=== PATIENT | male | born 1945 | race Caucasian/White ===

== ENCOUNTER 2019-12-01 05:07 | Observation (INO) ==
[2019-12-01] MEDS ORDERED: AMPICILLIN/SULBACTAM 3,000 MG in SODIUM CHLORIDE 0.9% 100 ML IV STA (06:22)
[2019-12-01] MEDS ORDERED: ONDANSETRON 4 MG/2 ML VIAL ONE ×2 (06:37→10:51)
[2019-12-01] MEDS ORDERED: HYDROmorphone 2 MG/1 ML VIAL ONE (06:37)
[2019-12-01 06:40] LABS: Basophils # 0.1 10*3/uL (0.0-0.2); Basophils % 0.4 % (0.0-0.8); Eosinophils # 0.3 10*3/uL (0.0-0.87); Eosinophils % 2.1 % (0.00-10.9); Hematocrit 47.1 VOL% (42.0-52.0); Immature Granulocytes % 0.7 %; Lymphocytes # 1.5 10*3/uL (1.4-4.0); Mean Corpuscular Volume 91.1 FL (87-102); Mean Platelet Volume 10.5 FL (9.6-12.0); Monocytes % 16.4 % (1.7-12.7); Neutrophils % 70.4 % (38.7-73.9); Platelet Count 173 T/CUMM (130-400); Red Blood Count 5.17 MC/CUMM (3.8-5.5); Red Cell Distribution Width 13.8 % (9.3-17.3); White Blood Count 14.9 T/CUMM (4-12)
[2019-12-01 06:49] LABS: INR 1.1; PT Patient Result 11.5 SECS (9.8-11.9); Partial Thromboplastin Time 29.6 SECS (23.9-33.8)
[2019-12-01 07:04] LABS: Albumin 3.1 G/DL (3.4-5.0); Bilirubin,Total 0.7 MG/DL (0.2-1.0); Calcium 8.6 MG/DL (8.5-10.1); Osmolality,Calculated 276.7 MOS/KG (273-304); Total Protein 6.9 G/DL (6.4-8.3)
[2019-12-01 07:11] LABS: Lymphocytes 6 % (20-55); Platelet Estimate Adequate; Segmented Neutrophils 82 % (50-85); Total Cells Counted 100
[2019-12-01] MEDS ORDERED: AMPICILLIN/SULBACTAM 3,000 MG VIAL ONE (07:29)
[2019-12-01] MEDS ORDERED: CLINDAMYCIN INJ 900 MG in PREMIX 1 EACH IV ONE (08:33)
[2019-12-01] MEDS ORDERED: DEXTROSE 50% 25 GM/50 ML VIAL IV PRN (08:55)
[2019-12-01] MEDS ORDERED: DOCUSATE SODIUM 100 MG CAPSULE PO PRN (08:55)
[2019-12-01] MEDS ORDERED: GLUCAGON 1 MG VIAL IM PRN (08:55)
[2019-12-01] MEDS ORDERED: ONDANSETRON 4 MG/2 ML VIAL IV PRN ×2 (08:55→10:54)
[2019-12-01] MEDS ORDERED: MORPHINE 4 MG/1 ML VIAL IV PRN (08:55)
[2019-12-01] MEDS ORDERED: LACTULOSE 20 GM/30 ML UDCUP PO PRN (08:55)
[2019-12-01] MEDS ORDERED: ALBUTEROL/IPRATROPIUM 3 ML NEB RESP TX SCH (09:00)
[2019-12-01] MEDS ORDERED: PIPERACILLIN/TAZOBACTAM 4.5 MG in SODIUM CHLORIDE 0.9% 100 ML IV SCH (09:00)
[2019-12-01] MEDS ORDERED: PIPERACILLIN/TAZOBACTAM 4,500 MG in SODIUM CHLORIDE 0.9% 100 ML IV SCH ×2 (09:02→09:30)
[2019-12-01] MEDS ORDERED: BUPIVACAINE 0.25% /EPI 10 ML VIAL ONE (09:02)
[2019-12-01] MEDS ORDERED: LIDOCAINE 1%/EPI INJ 20 ML VIAL ONE (09:02)
[2019-12-01] MEDS ORDERED: CLINDAMYCIN INJ 50 ML IV ONE (10:12)
[2019-12-01] MEDS ORDERED: MEPERIDINE 25 MG/1 ML VIAL ONE (10:51)
[2019-12-01] MEDS ORDERED: MEPERIDINE 25 MG/1 ML VIAL IV PRN (10:54)
[2019-12-01] MEDS ORDERED: SEVOFLURANE 1 UNIT/15 MINUTE INH ONE (11:17)
[2019-12-01] MEDS ORDERED: LIDOCAINE 2% 5 ML VIAL ONE (11:17)
[2019-12-01] MEDS ORDERED: fentaNYL 100 MCG/2 ML VIAL ONE (11:17)
[2019-12-01] MEDS ORDERED: propofoL 200 MG/20 ML VIAL IV ONE (11:17)
[2019-12-01] MEDS ORDERED: SUCCINYLCHOLINE 200 MG/10 ML VIAL ONE (11:17)
[2019-12-01] MEDS ORDERED: ALBUTEROL 2.5 MG/3 ML NEB RESP TX PRN (13:39)
[2019-12-01] MEDS: ALBUTEROL/IPRATROPIUM 3 ML NEB RESP TX SCH ×2 (13:50→19:17)
[2019-12-01] MEDS ORDERED: VANCOMYCIN INJ 1,750 MG in SODIUM CHLORIDE 0.9% 500 ML IV SCH (14:00)
[2019-12-01] MEDS ORDERED: hydrALAZINE 20 MG/1 ML VIAL IV PRN (14:08)
[2019-12-01] MEDS: LACTOBACILLUS RHAMNOSUS GG CAPSULE PO SCH ×2 (14:58→21:19)
[2019-12-01] MEDS: PIPERACILLIN/TAZOBACTAM 3,375 MG in SODIUM CHLORIDE 0.9% 100 ML IV SCH (17:54)
[2019-12-01] MEDS: ATORVASTATIN 80 MG TABLET PO SCH (21:18)
[2019-12-01] MEDS: MULTIVITAMIN (CENTRUM) TABLET PO SCH (21:18)
[2019-12-01] MEDS: carvediloL 3.125 MG TABLET PO SCH (21:19)
[2019-12-02] MEDS: PIPERACILLIN/TAZOBACTAM 3,375 MG in SODIUM CHLORIDE 0.9% 100 ML IV SCH ×4 (00:37→23:21)
[2019-12-02] MEDS: ALBUTEROL/IPRATROPIUM 3 ML NEB RESP TX SCH ×4 (00:45→19:05)
[2019-12-02 05:26] LABS: Basophils # 0.1 10*3/uL (0.0-0.2); Basophils % 0.5 % (0.0-0.8); Eosinophils # 0.5 10*3/uL (0.0-0.87); Eosinophils % 3.8 % (0.00-10.9); Hematocrit 44.1 VOL% (42.0-52.0); Hemoglobin 14.7 GM/DL (14.0-18.0); Immature Granulocytes % 0.5 %; Immature Granulocytes Absolute 0.06 #; Lymphocytes % 15.7 % (21.2-54.2); Mean Corpuscular HGB Conc 33.3 GM/DL (32-36); Mean Corpuscular Volume 92.6 FL (87-102); Mean Platelet Volume 10.8 FL (9.6-12.0); Monocytes % 14.1 % (1.7-12.7); Neutrophils % 65.4 % (38.7-73.9); Platelet Count 160 T/CUMM (130-400); Red Blood Count 4.76 MC/CUMM (3.8-5.5); Red Cell Distribution Width 14.1 % (9.3-17.3); White Blood Count 12.5 T/CUMM (4-12)
[2019-12-02 05:44] LABS: Calcium 7.9 MG/DL (8.5-10.1); Osmolality,Calculated 282.4 MOS/KG (273-304)
[2019-12-02] MEDS: LACTOBACILLUS RHAMNOSUS GG CAPSULE PO SCH ×2 (09:15→20:19)
[2019-12-02] MEDS: hydroCHLOROthiazide 12.5 MG CAPSULE PO SCH (09:15)
[2019-12-02] MEDS: ASPIRIN EC 81 MG TABLET PO SCH (09:15)
[2019-12-02] MEDS: carvediloL 3.125 MG TABLET PO SCH ×2 (09:15→20:19)
[2019-12-02] MEDS: LOSARTAN 50 MG TABLET PO SCH (09:16)
[2019-12-02] MEDS: ATORVASTATIN 80 MG TABLET PO SCH (20:19)
[2019-12-02] MEDS: MULTIVITAMIN (CENTRUM) TABLET PO SCH (20:19)
[2019-12-03] MEDS: ALBUTEROL/IPRATROPIUM 3 ML NEB RESP TX SCH ×3 (00:40→13:55)
[2019-12-03 06:12] LABS: Basophils # 0.1 10*3/uL (0.0-0.2); Basophils % 0.7 % (0.0-0.8); Eosinophils # 0.8 10*3/uL (0.0-0.87); Eosinophils % 6.8 % (0.00-10.9); Hematocrit 44.7 VOL% (42.0-52.0); Hemoglobin 14.8 GM/DL (14.0-18.0); Immature Granulocytes % 0.7 %; Immature Granulocytes Absolute 0.08 #; Lymphocytes # 1.7 10*3/uL (1.4-4.0); Lymphocytes % 15.4 % (21.2-54.2); Mean Corpuscular HGB Conc 33.1 GM/DL (32-36); Mean Corpuscular Volume 94.1 FL (87-102); Mean Platelet Volume 10.7 FL (9.6-12.0); Monocytes % 11.6 % (1.7-12.7); Neutrophils % 64.8 % (38.7-73.9); Platelet Count 182 T/CUMM (130-400); Red Blood Count 4.75 MC/CUMM (3.8-5.5); Red Cell Distribution Width 13.9 % (9.3-17.3); White Blood Count 11.1 T/CUMM (4-12)
[2019-12-03 06:46] LABS: Calcium 8.6 MG/DL (8.5-10.1); Osmolality,Calculated 283.3 MOS/KG (273-304)
[2019-12-03] MEDS ORDERED: CHOLECALCIFEROL 1,000 UNIT TABLET PO SCH (09:00)
[2019-12-03] MEDS: PIPERACILLIN/TAZOBACTAM 3,375 MG in SODIUM CHLORIDE 0.9% 100 ML IV SCH ×2 (10:09→17:27)
[2019-12-03] MEDS: hydroCHLOROthiazide 12.5 MG CAPSULE PO SCH (10:10)
[2019-12-03] MEDS: LACTOBACILLUS RHAMNOSUS GG CAPSULE PO SCH (10:11)
[2019-12-03] MEDS: LOSARTAN 50 MG TABLET PO SCH (10:11)
[2019-12-03] MEDS: ASPIRIN EC 81 MG TABLET PO SCH (10:11)
[2019-12-03] MEDS: carvediloL 3.125 MG TABLET PO SCH (10:11)
[2019-12-03 12:29] VITALS: BP 148/86
== END 2019-12-03 17:30 | disposition home health service (06) ==
LOC: N.EDINP 05:07 → N.ED 05:07 → N.3E 09:40
PROVIDERS: ADMIT Hospitalist; ATTEND Hospitalist

== ENCOUNTER 2021-07-31 21:15 | Observation (INO) ==
[2021-07-31] MEDS ORDERED: ASPIRIN 325 MG TABLET PO STA (21:46)
[2021-07-31] MEDS ORDERED: NITROGLYCERIN 2% OINT 1 INCH/GM PACK TOP STA (21:46)
[2021-07-31] MEDS ORDERED: ENOXAPARIN 100 MG/ML SYRINGE SUBCUT STA (21:46)
[2021-07-31] MEDS ORDERED: ONDANSETRON 4 MG/2 ML VIAL IV STA (21:46)
[2021-07-31] MEDS ORDERED: MORPHINE 4 MG/1 ML VIAL IV STA (21:49)
[2021-07-31 22:11] LABS: Basophils # 0.1 10*3/uL (0.0-0.2); Eosinophils # 0.5 10*3/uL (0.0-0.87); Eosinophils % 5.9 % (0.00-10.9); Hematocrit 50.6 VOL% (42.0-52.0); Hemoglobin 16.9 GM/DL (14.0-18.0); Immature Granulocytes % 0.5 %; Immature Granulocytes Absolute 0.04 #; Lymphocytes # 2.2 10*3/uL (1.4-4.0); Lymphocytes % 25.2 % (21.2-54.2); Mean Corpuscular HGB Conc 33.4 GM/DL (32-36); Mean Corpuscular Volume 89.2 FL (87-102); Monocytes % 12.2 % (1.7-12.7); Neutrophils % 55.2 % (38.7-73.9); Platelet Count 201 T/CUMM (130-400); Red Blood Count 5.67 MC/CUMM (3.8-5.5); Red Cell Distribution Width 14.1 % (9.3-17.3); White Blood Count 8.6 T/CUMM (4-12)
[2021-07-31 22:23] LABS: PT Patient Result 11.4 SECS (10.5-12.0)
[2021-07-31 22:31] LABS: Albumin 3.6 G/DL (3.4-5.0); Bilirubin,Total 0.5 MG/DL (0.20-1.00); Osmolality,Calculated 281.4 MOS/KG (273-304); Potassium 3.6 MMOL/L (3.5-5.1); Total Protein 6.8 G/DL (6.4-8.2)
[2021-08-01] MEDS ORDERED: ACETAMINOPHEN 325 MG TABLET PO PRN (00:54)
[2021-08-01] MEDS ORDERED: GLUCAGON 1 MG VIAL IM PRN (00:54)
[2021-08-01] MEDS ORDERED: MAGNESIUM SULF RIDER 4 GM/100 ML PREMIX IV PRN (01:02)
[2021-08-01] MEDS ORDERED: POTASSIUM CHLORIDE RIDER 10 MEQ/100 ML PREMIX IV PRN (01:02)
[2021-08-01] MEDS ORDERED: POTASSIUM CHLORIDE 20 MEQ TABLET PO PRN (01:02)
[2021-08-01] MEDS ORDERED: MAGNESIUM SULF RIDER 2 GM/50 ML PREMIX IV PRN ×2 (01:02→08:03)
[2021-08-01] MEDS ORDERED: MORPHINE 4 MG/1 ML VIAL IV PRN (01:05)
[2021-08-01] MEDS ORDERED: DEXTROSE 10% 250 ML BAG IV PRN (01:07)
[2021-08-01 06:05] LABS: Basophils # 0.1 10*3/uL (0.0-0.2); Basophils % 0.9 % (0.0-0.8); Eosinophils # 0.5 10*3/uL (0.0-0.87); Eosinophils % 6.8 % (0.00-10.9); Hematocrit 50.7 VOL% (42.0-52.0); Hemoglobin 16.5 GM/DL (14.0-18.0); Immature Granulocytes % 0.5 %; Immature Granulocytes Absolute 0.04 #; Lymphocytes % 25.9 % (21.2-54.2); Mean Corpuscular HGB Conc 32.5 GM/DL (32-36); Mean Corpuscular Volume 91.5 FL (87-102); Mean Platelet Volume 10.6 FL (9.6-12.0); Monocytes % 11.2 % (1.7-12.7); Neutrophils % 54.7 % (38.7-73.9); Platelet Count 143 T/CUMM (130-400); Red Blood Count 5.54 MC/CUMM (3.8-5.5); Red Cell Distribution Width 14.2 % (9.3-17.3); White Blood Count 7.8 T/CUMM (4-12)
[2021-08-01 06:28] LABS: Bilirubin,Total 0.5 MG/DL (0.20-1.00); Calcium 8.5 MG/DL (8.5-10.1); Osmolality,Calculated 281.4 MOS/KG (273-304); Potassium 3.8 MMOL/L (3.5-5.1); Total Protein 6.4 G/DL (6.4-8.2)
[2021-08-01 06:36] LABS: Risk Ratio 3.77; Thyroid Stimulating Hormone 4.82 uIU/ml (0.358-3.74); VLDL Cholesterol 38.6 MG/DL
[2021-08-01] MEDS ORDERED: ALBUTEROL 2.5 MG/3 ML NEB RESP TX PRN (09:06)
[2021-08-01] MEDS ORDERED: hydrALAZINE 20 MG/1 ML VIAL IV PRN (09:14)
[2021-08-01] MEDS ORDERED: FLUTICASONE UMECLIDIN VILANTER INH SCH (09:15)
[2021-08-01] MEDS: hydroCHLOROthiazide 12.5 MG CAPSULE PO SCH (10:38)
[2021-08-01] MEDS: ASPIRIN EC 81 MG TABLET PO SCH (10:38)
[2021-08-01] MEDS: TAMSULOSIN 0.4 MG CAPSULE PO SCH (10:38)
[2021-08-01] MEDS: EZETIMIBE 10 MG TABLET PO SCH (10:38)
[2021-08-01] MEDS: carvediloL 3.125 MG TABLET PO SCH ×2 (10:39→22:47)
[2021-08-01] MEDS ORDERED: ENOXAPARIN 150 MG/ML SYRINGE SUBCUT SCH (11:00)
[2021-08-01] MEDS ORDERED: diphenhydrAMINE CAP 50 MG CAPSULE PO ONE (14:00)
[2021-08-01] MEDS ORDERED: DIAZEPAM 5 MG TABLET PO ONE (14:00)
[2021-08-01] MEDS ORDERED: VERAPAMIL 5 MG/2 ML VIAL ONE (15:45)
[2021-08-01] MEDS ORDERED: NITROGLYCERIN DRIP 50 MG/250 ML BOTTLE IV ONE (15:45)
[2021-08-01] MEDS ORDERED: HYDROmorphone 1 MG/1 ML SYRINGE ONE (16:02)
[2021-08-01] MEDS ORDERED: MIDAZOLAM 2 MG/2 ML VIAL ONE (16:02)
[2021-08-01] MEDS ORDERED: ENOXAPARIN 30 MG/0.3 ML SYRINGE ONE ×2 (16:21→16:37)
[2021-08-01] MEDS ORDERED: ENOXAPARIN 60 MG/0.6 ML SYRINGE ONE ×2 (16:21→16:35)
[2021-08-01] MEDS ORDERED: TIROFIBAN 5,000 MCG/100 ML PREMIX IV ONE (16:35)
[2021-08-01] MEDS ORDERED: TIROFIBAN 5,000 MCG/100 ML PREMIX IV SCH (16:47)
[2021-08-01] MEDS ORDERED: PRASUGREL 10 MG TABLET ONE (17:10)
[2021-08-01] MEDS ORDERED: NITROGLYCERIN SL 0.4 MG TABLET SL PRN (17:14)
[2021-08-01] MEDS: SODIUM CHLORIDE 0.9% 1,000 ML IV SCH ×2 (17:58→17:59)
[2021-08-01] MEDS ORDERED: ATORVASTATIN 80 MG TABLET PO SCH (21:00)
[2021-08-02] MEDS: SODIUM CHLORIDE 0.9% 1,000 ML IV SCH ×2 (02:30→09:50)
[2021-08-02 05:38] LABS: Basophils # 0.1 10*3/uL (0.0-0.2); Basophils % 0.8 % (0.0-0.8); Eosinophils # 0.4 10*3/uL (0.0-0.87); Eosinophils % 4.9 % (0.00-10.9); Hemoglobin 16.4 GM/DL (14.0-18.0); Immature Granulocytes % 0.4 %; Immature Granulocytes Absolute 0.04 #; Lymphocytes # 1.9 10*3/uL (1.4-4.0); Lymphocytes % 20.6 % (21.2-54.2); Mean Corpuscular HGB Conc 33.5 GM/DL (32-36); Mean Corpuscular Volume 90.6 FL (87-102); Mean Platelet Volume 10.4 FL (9.6-12.0); Monocytes % 10.7 % (1.7-12.7); Neutrophils % 62.6 % (38.7-73.9); Platelet Count 190 T/CUMM (130-400); Red Blood Count 5.41 MC/CUMM (3.8-5.5); Red Cell Distribution Width 14.4 % (9.3-17.3); White Blood Count 9.1 T/CUMM (4-12)
[2021-08-02 06:17] LABS: Calcium 8.6 MG/DL (8.5-10.1); Osmolality,Calculated 281.3 MOS/KG (273-304); Potassium 4.2 MMOL/L (3.5-5.1)
[2021-08-02] MEDS ORDERED: MAGNESIUM HYDROXIDE SUSP 30 ML UDCUP PO PRN (08:39)
[2021-08-02] MEDS ORDERED: MAGNESIUM HYDROXIDE SUSP 30 ML UDCUP PO ONE (08:51)
[2021-08-02] MEDS ORDERED: PRASUGREL 10 MG TABLET PO SCH (09:00)
[2021-08-02] MEDS ORDERED: LOSARTAN 50 MG TABLET PO SCH (09:00)
[2021-08-02] MEDS: carvediloL 3.125 MG TABLET PO SCH (09:26)
[2021-08-02] MEDS: ASPIRIN EC 81 MG TABLET PO SCH (09:26)
[2021-08-02] MEDS: hydroCHLOROthiazide 12.5 MG CAPSULE PO SCH (09:26)
[2021-08-02] MEDS: TAMSULOSIN 0.4 MG CAPSULE PO SCH (09:26)
[2021-08-02] MEDS: EZETIMIBE 10 MG TABLET PO SCH (09:26)
[2021-08-02] MEDS ORDERED: BISACODYL 10 MG SUPP RECTAL ONE (10:08)
[2021-08-02 13:01] VITALS: BP 133/81
== END 2021-08-02 13:02 | disposition home or self-care (01) ==
LOC: N.EDINP 21:15 → N.ED 21:15 → SUATTDRO 08-01 00:54 → N.TELEN 08-01 03:26
PROVIDERS: ADMIT Internal Medicine; ATTEND Internal Medicine Cardiovascular Disease
PROC: CLCCHCL (ICD-10-PCS; 2021-08-01 16:45)

== ENCOUNTER 2021-12-18 05:47 | Observation (INO) ==
[2021-12-12 11:20] LABS: RBC,Urine <1 /HPF (0-4); Squamous Epithelial Cell,Urine Occasional /HPF (0-10)
[2021-12-12 11:22] LABS: Urine Color Yellow (Yellow)
[2021-12-12 11:23] LABS: Bilirubin,Urine Negative (Negative); Blood, Urine Negative (Negative); Glucose,Urine (UA) Negative (Negative); Ketones,Urine Negative (Negative); Nitrite,Urine Negative (Negative); Protein,Urine Negative (Negative); Urine Appearance Clear (Clear); Urine Urobilinogen 0.2 eU/dL (<2.0); Urine pH 5.5 (4.5-8.0)
[2021-12-12 12:51] LABS: Basophils # 0.1 10*3/uL (0.0-0.2); Basophils % 0.7 % (0.0-0.8); Eosinophils # 0.3 10*3/uL (0.0-0.87); Eosinophils % 3.4 % (0.00-10.9); Hemoglobin 16.7 GM/DL (14.0-18.0); Immature Granulocytes % 0.5 %; Immature Granulocytes Absolute 0.05 #; Lymphocytes % 19.8 % (21.2-54.2); Mean Corpuscular HGB Conc 33.4 GM/DL (32-36); Mean Corpuscular Volume 91.9 FL (87-102); Mean Platelet Volume 10.9 FL (9.6-12.0); Monocytes % 10.1 % (1.7-12.7); Neutrophils % 65.5 % (38.7-73.9); Platelet Count 196 T/CUMM (130-400); Red Blood Count 5.44 MC/CUMM (3.8-5.5); Red Cell Distribution Width 14.6 % (9.3-17.3); White Blood Count 10.1 T/CUMM (4-12)
[2021-12-12 13:26] LABS: Albumin 3.9 G/DL (3.4-5.0); Bilirubin,Total 0.6 MG/DL (0.20-1.00); Calcium 9.7 MG/DL (8.5-10.1); Osmolality,Calculated 282.3 MOS/KG (273-304); Potassium 4.3 MMOL/L (3.5-5.1)
[2021-12-18] MEDS ORDERED: SODIUM PHOSPHATE ENEMA 133 ML BOTTLE RECTAL ONE ×2 (06:00→06:04)
[2021-12-18] MEDS ORDERED: ALVIMOPAN 12 MG CAPSULE PO ONE (06:00)
[2021-12-18] MEDS ORDERED: cefTRIAXone 1,000 MG in SODIUM CHLORIDE 0.9% 100 ML IV ONE (06:00)
[2021-12-18] MEDS ORDERED: MIDAZOLAM 2 MG/2 ML VIAL ONE (06:15)
[2021-12-18] MEDS ORDERED: LIDOCAINE 2% 5 ML VIAL ONE (06:15)
[2021-12-18] MEDS ORDERED: fentaNYL 100 MCG/2 ML VIAL ONE ×3 (06:15→09:03)
[2021-12-18] MEDS ORDERED: ROCURONIUM 50 MG/5 ML VIAL IV ONE ×2 (06:16→07:28)
[2021-12-18] MEDS ORDERED: propofoL 200 MG/20 ML VIAL IV ONE (06:16)
[2021-12-18] MEDS: LACTATED RINGERS 1,000 ML IV SCH (06:30)
[2021-12-18] MEDS ORDERED: ALBUTEROL INHALER 18 GM INH ONE (07:22)
[2021-12-18] MEDS ORDERED: ePHEDrine 50 MG/ML VIAL ONE (07:38)
[2021-12-18] MEDS ORDERED: LACTATED RINGERS 1,000 ML IV ONE ×2 (07:39→11:34)
[2021-12-18 08:24] LABS: Urine Appearance Clear (Clear); Urine Color Yellow (Yellow); Urine Specific Gravity 1.025 (1.001-1.035); Urine pH 5.5 (4.5-8.0)
[2021-12-18 08:25] LABS: Bilirubin,Urine Negative (Negative); Blood, Urine Large mg/dL (Negative); Glucose,Urine (UA) Negative (Negative); Ketones,Urine Negative (Negative); Nitrite,Urine Negative (Negative); Protein,Urine Negative (Negative); RBC,Urine 35-40 /HPF (0-4); Squamous Epithelial Cell,Urine Rare /HPF (0-10); Urine Urobilinogen 0.2 eU/dL (<2.0)
[2021-12-18] MEDS ORDERED: ALBUTEROL/IPRATROPIUM 3 ML NEB RESP TX ONE (10:34)
[2021-12-18] MEDS ORDERED: SUGAMMADEX 200 MG/2 ML VIAL IV ONE (11:33)
[2021-12-18] MEDS ORDERED: SEVOFLURANE 1 UNIT/15 MINUTE INH ONE (11:34)
[2021-12-18] MEDS ORDERED: ONDANSETRON 4 MG/2 ML VIAL IV PRN ×2 (11:49→12:22)
[2021-12-18] MEDS: HYDROmorphone 1 MG/1 ML SYRINGE IV PRN ×6 (12:10→20:35)
[2021-12-18] MEDS: oxyCODONE/ACETAMINOPHEN 5-325 MG TABLET PO PRN ×2 (17:23→21:32)
[2021-12-18] MEDS: OXYBUTYNIN XL 10 MG TABLET PO SCH (18:39)
[2021-12-18] MEDS ORDERED: ATORVASTATIN 80 MG TABLET PO SCH (21:00)
[2021-12-18] MEDS ORDERED: MULTIVITAMIN (CENTRUM) TABLET PO SCH (21:00)
[2021-12-18] MEDS: ALVIMOPAN 12 MG CAPSULE PO SCH (21:31)
[2021-12-18] MEDS: carvediloL 3.125 MG TABLET PO SCH (21:31)
[2021-12-18] MEDS: DEXTROSE 5% NACL 0.45% 1,000 ML IV SCH (21:33)
[2021-12-19] MEDS ORDERED: ALBUTEROL 2.5 MG/3 ML NEB RESP TX PRN (01:00)
[2021-12-19 04:56] LABS: Basophils % 0.4 % (0.0-0.8); Eosinophils # 0.1 10*3/uL (0.0-0.87); Eosinophils % 0.8 % (0.00-10.9); Hematocrit 44.4 VOL% (42.0-52.0); Hemoglobin 14.6 GM/DL (14.0-18.0); Immature Granulocytes % 0.4 %; Immature Granulocytes Absolute 0.04 #; Lymphocytes # 1.5 10*3/uL (1.4-4.0); Lymphocytes % 16.1 % (21.2-54.2); Mean Corpuscular HGB Conc 32.9 GM/DL (32-36); Mean Corpuscular Volume 92.9 FL (87-102); Mean Platelet Volume 10.7 FL (9.6-12.0); Monocytes % 10.9 % (1.7-12.7); Neutrophils % 71.4 % (38.7-73.9); Platelet Count 166 T/CUMM (130-400); Red Blood Count 4.78 MC/CUMM (3.8-5.5)
[2021-12-19] MEDS: LACTATED RINGERS 1,000 ML IV SCH (06:27)
[2021-12-19] MEDS: DEXTROSE 5% NACL 0.45% 1,000 ML IV SCH (06:52)
[2021-12-19 07:28] LABS: Calcium 8.1 MG/DL (8.5-10.1); Osmolality,Calculated 280.4 MOS/KG (273-304); Potassium 3.6 MMOL/L (3.5-5.1)
[2021-12-19 08:45] VITALS: BP 112/56
[2021-12-19] MEDS ORDERED: EZETIMIBE 10 MG TABLET PO SCH (09:00)
[2021-12-19] MEDS ORDERED: LOSARTAN 50 MG TABLET PO SCH (09:00)
[2021-12-19] MEDS ORDERED: NON-FORMULARY MEDICATION (Fluticasone-Umeclidin-Vilanter [Trelegy Ellipta] 100-62.5-25 mcg INH SCH (09:00)
[2021-12-19] MEDS: ALVIMOPAN 12 MG CAPSULE PO SCH (09:16)
[2021-12-19] MEDS: carvediloL 3.125 MG TABLET PO SCH (09:16)
[2021-12-19] MEDS: OXYBUTYNIN XL 10 MG TABLET PO SCH (09:16)
[2021-12-19] MEDS: oxyCODONE/ACETAMINOPHEN 5-325 MG TABLET PO PRN (12:09)
== END 2021-12-19 15:33 | disposition home or self-care (01) ==
LOC: INTOOBSV 05:47 → N.SDSINP 05:47 → N.3E 16:40
PROVIDERS: ADMIT Urology; ATTEND Urology